=== PATIENT | male | born 1995 | race African-American/Black ===

== ENCOUNTER 2020-07-13 13:56 | Emergency (ER) | payer SELFPAY ==
[~2020-07-13] VITALS: Ht 172.7 cm; Wt 60.0 kg
[2020-07-13 14:07] VITALS: BP 111/66; TEMP 98.3
[2020-07-13] MEDS ORDERED: CEPHALEXIN500 M1 PO (14:48)
[2020-07-13 15:15] VITALS: PULSE 83
== END 2020-07-13 15:16 | disposition home or self-care (01) ==
LOC: COL.ER 13:56
DX: S51.812A Laceration without foreign body of left forearm, initial encounter (principal); W22.8XXA Striking against or struck by other objects, initial encounter

== ENCOUNTER 2020-11-13 14:02 | Emergency (ER) | payer SELFPAY ==
[~2020-11-13] VITALS: Ht 170.2 cm; Wt 64.5 kg
[~2020-11-13 14:02] MED LIST: CEPHALEXIN500 M1 PO
[2020-11-13 14:14] VITALS: TEMP 97.6
[2020-11-13 15:25] VITALS: BP 127/102
[2020-11-13] MEDS ORDERED: ZOFRAN ODT4 MG PO (17:03)
[2020-11-13] MEDS ORDERED: NORCO 325 MG-51 TAB PO (17:03)
[2020-11-13 17:47] VITALS: PULSE 65
[2020-11-13] MEDS ORDERED: CRUTCHES MC (17:49)
== END 2020-11-13 17:47 | disposition home or self-care (01) ==
LOC: COL.ER 14:02
DX: S82.851A Displaced trimalleolar fracture of right lower leg, initial encounter for closed fracture (principal); F17.210 Nicotine dependence, cigarettes, uncomplicated; V09.9XXA Pedestrian injured in unspecified transport accident, initial encounter; Y92.481 Parking lot as the place of occurrence of the external cause
CPT/HCPCS: J1170; J2405; J2704; J3010; J7030

== ENCOUNTER 2020-11-19 08:13 | Day surgery (SDC) | payer SELFPAY ==
[~2020-11-19] VITALS: Ht 172.7 cm; Wt 66.3 kg
[~2020-11-19 08:13] MED LIST changes: +CRUTCHES MC; +NORCO 325 MG-51 TAB PO; +ZOFRAN ODT4 MG PO
[2020-11-19 08:39] VITALS: BP 125/66; PULSE 100; TEMP 98.3
[2020-11-19] MEDS ORDERED: ULTRAM 50MG TAB50 MG PO (09:09)
--- NOTE | 2020-11-19 09:11 | NUR ---
DR KENNY INTO SEE PATIENT CALL LIGHT IN REACH GIRLFRIEND VIJAY AT BEDSIDE.
[2020-11-19 11:21] VITALS: BP 112/61; PULSE 76; TEMP 97.8
--- NOTE | 2020-11-19 11:21 | NUR ---
Patient arrives to [facility] [place] [address] via cart. He is alert and oriented. Monitoring is applied - VSS and WNL on room air. His operative site is covered with a clean, dry, intact dressing. His toes are visible, warm, and pink. He does not have sensation to the right ankle and is unable to move the right ankle due to regional anesthesia block. He denies pain or nausea. Lights are dimmed for comfort. His girlfriend is at the bedside.
[2020-11-19 11:30] VITALS: BP 123/66; PULSE 81
--- NOTE | 2020-11-19 11:30 | NUR ---
Patient puts his call light on and requests to use the restroom. He ambulates to the restroom using crutches, NWB RLE. He voids a large amount and returns to room. He requests and receives coffee and pudding to eat. His HOB is sat up and lights turned on. He denies further needs at this time.
[2020-11-19 11:45] VITALS: BP 117/65; PULSE 77
[2020-11-19 12:00] VITALS: BP 113/67; PULSE 77
--- NOTE | 2020-11-19 12:25 | NUR ---
Patient has met discharge criteria. Dismissal instructions are discussed. He denies any questions and verbalizes understanding. PIV is removed with catheter intact and hemostasis achieved. He is aware of his prescription to sp[facility] pick[facility] at his preferred pharmacy, along with the date/time of his f/u appointment with ortho. Staff assists him to change to his clothing. He is escorted to the exit via wheelchair by staff. He is discharged to home with ride in private vehicle to the care of his girlfriend at 1225.
[2020-11-19 12:45] VITALS: BP 108/66; PULSE 80; TEMP 99.1
== END 2020-11-19 12:25 | disposition home or self-care (01) ==
LOC: SDCO 08:13
DX: S82.851A Displaced trimalleolar fracture of right lower leg, initial encounter for closed fracture (principal); F17.210 Nicotine dependence, cigarettes, uncomplicated; Z20.822 Contact with and (suspected) exposure to COVID-19; V48.2XXA Person on outside of car injured in noncollision transport accident in nontraffic accident, initial encounter; Y92.9 Unspecified place or not applicable
CPT/HCPCS: C1713; J2250; J2704; J2795; J7120